=== PATIENT | male | born 1950 | race Caucasian/White ===

== ENCOUNTER 2016-10-06 12:23 | Emergency (ER) | payer BC, MEDICARE ==
--- NOTE | 2016-10-06 13:35 | UC ---
Skin Complaint HPI - HPI Summary HPI Summary: 66 y/o male presents to the urgent care c/o a red rash over his RT arm that is increasing in size s/p bug bite 1 month ago. Pt states he doesn't know what bug was it. But he has applied topical antibiotic w/o any improvement and now is warm to touch and now is spreading to his RT shoulder. Pt denies fever, pain, SOB, chest pain, N/V/D. Pt also states he has HX of Lyme disease in the past which has been managed by his PCP. - History of Current Complaint Chief Complaint: UCSkin Time Seen by Provider: 10/06/16 13:32 Stated Complaint: BUG BITE Hx Obtained From: Patient Onset/Duration: Gradual Onset, Lasting Weeks, Still Present Skin Exposure Onset/Duration: Weeks Ago Timing: Constant Onset Severity: Mild Current Severity: Severe Pain Intensity: 0 Pain Scale Used: 0-10 Numeric Location: Discrete - RT arm spreading to the RT shoulder Character: Swelling, Redness Aggravating: Touch - itches Alleviating: OTC Meds Associated Signs & Symptoms: Negative: Nausea, Vomiting, Numbness, Fever, Chills , Chest Pain, Throat Tightening, Red Streaks, Joint Swelling Related History: Possible Reaction to: Insect - Allergy/Home Medications Allergies/Adverse Reactions: Allergies Allergy/AdvReac Type Severity Reaction Status Date / Time No Known Allergies Allergy Verified 10/06/16 12:28 Review of Systems Constitutional: Negative Skin: Rash - RT arm rash s/p bug bite incresing in size Eyes: Negative ENT: Negative Respiratory: Negative Cardiovascular: Negative Gastrointestinal: Negative Genitourinary: Negative Motor: Negative Neurovascular: Negative Musculoskeletal: Negative Neurological: Negative Psychological: Negative All Other Systems Reviewed And Are Negative: Yes PMH/Surg Hx/FS Hx/Imm Hx Previously Healthy: Yes - Surgical History Surgical History: Yes Surgery Procedure, Year, and Place: Lt KNEE - LIGAMENT REPAIR-[facility]. Lt ANKLE FX REPAIR- NO METAL IMPLANT- [facility]. right shoulder bicep repair 07/2014 - Family History Known Family History: Positive: Hypertension - Social History Occupation: Employed Full-time Lives: With Family Alcohol Use: Daily Alcohol Amount: 1-2 PER DAY//3-4 ON THE WEEKEND DAY Substance Use Type: None Smoking Status (MU): Never Smoked Tobacco Physical Exam Triage Information Reviewed: Yes Appearance: Well-Appearing, No Pain Distress, Well-Nourished Vital Signs: Initial Vital Signs Temp 97.5 F 10/06/16 12:25 Pulse 74 10/06/16 12:25 Resp 16 10/06/16 12:25 BP 166/86 10/06/16 12:25 Pulse Ox 98 10/06/16 12:25 Vital Signs Reviewed: Yes Eye Exam: Normal Eyes: Positive: Conjunctiva Clear - PERRLA, EOMI, fundi grossly normal ENT Exam: Normal ENT: Positive: Normal ENT inspection, Hearing grossly normal, Pharynx normal, TMs normal Dental Exam: Normal Neck exam: Normal Neck: Positive: Supple, Nontender, No Lymphadenopathy Respiratory Exam: Normal Respiratory: Positive: Chest non-tender, Lungs clear, Normal breath sounds Cardiovascular Exam: Normal Cardiovascular: Positive: RRR, No Murmur, Pulses Normal Abdominal Exam: Normal Abdomen Description: Positive: Nontender, No Organomegaly, Soft. Negative: CVA Tenderness (R), CVA Tenderness (L) Bowel Sounds: Positive: Present Musculoskeletal Exam: Normal Musculoskeletal: Positive: Strength Intact, ROM Intact, No Edema Neurological Exam: Normal Psychological Exam: Normal Skin: Positive: rashes - lateral side of RT arm proximal to shloulder with a erythematous patch w/ indistict order, w/ discrete papule of the insect bite asout 12cm x 14cm in size. mildly tender to palpation no red streaks. FROm of the shoulder and arm, positive pulses, sensation intact and capillary refill intact. Course/Dx - Course Course Of Treatment: 66 y/o male presents to the urgent care c/o a red rash over his RT arm that is increasing in size s/p bug bite 1 month ago. Pt states he doesn't know what bug was it. But he has applied topical antibiotic w/o any improvement and now is warm to touch and now is spreading to his RT shoulder. Pt denies fever, pain, SOB, chest pain, N/V/D. Pt also states he has HX of Lyme disease in the past which has been managed by his PCP. HX obtained. Most likely cellulitis s/p insect bite. Rash was demarcated w/ a skin marker. Pt Rx Bactrim to cover for MRSA and advised to take full course of ABX. Advised if rash doubles in size and develops fever to go immediately to the ER for further treatment. PT understood and agreed and left the clinic ambulating, - Differential Diagnoses - Skin Complaint Differential Diagnoses: Allergic Reaction, Cellulitis, Contact Dermatitis, Eczema, Tick Born Illness, Urticaria - Diagnoses Provider Diagnoses: 1-Cellulitis in the RT arm s/p insect bite Discharge - Discharge Plan Condition: Stable Disposition: HOME Prescriptions: Ibuprofen TAB* [Motrin TAB* 800 MG] 800 mg PO Q6H #20 tab Sulfamethox/Trimethoprim DS* [Bactrim DS 800/160 TAB*] 1 tab PO BID #20 tab Patient Education Materials: Cellulitis (ED), Low Sodium Diet (ED) Referrals: David Pressley MD [Primary Care Provider] - 3 Days Additional Instructions: 1-Please take medications as directed. take ibuprofen after meals if you develop fever or pain. If rash doubles in size beyond the demarcated area and fever develops despite the antibiotic go to the ER immediately for further management. Otherwise f/u with your PCP in 3 days if it is resolving. 2- Your BP is elevated today, please decrease salt in your diet, continue monitor your BP, if it continues to be elevated please f/u with your PCP
[2016-10-06 14:14] VITALS: BP 158/84
== END 2016-10-06 14:10 | disposition home or self-care (01) ==
LOC: UCEAST 12:23
DX: L03.113 Cellulitis of right upper limb (principal); Z86.19 Personal history of other infectious and parasitic diseases
CPT/HCPCS: 99212; G0463

== ENCOUNTER 2017-01-16 14:50 | Emergency (ER) | payer BC, MEDICARE ==
[2017-01-16 15:01] VITALS: BP 149/88
--- NOTE | 2017-01-16 15:28 | UC ---
Dizzy HPI HPI Summary: ONSET OF DIZZINESS THIS MORNING AFTER BENDING OVER TO PICK SOMETHING UP. TOOK A NAP AND IT IMPROVED. RESTARTED LATER THIS AFTERNOON AFTER BENDING OVER AGAIN. SX NOT RESOLVING. DIZZINESS IS CONSTANT THOUGH WORSENS WITH POSITION CHANGE. DENIES FEVER, SOB, CP, SWEATS, PALPITATIONS. DOES REPORT A HENDERSON AND NAUSEA. DONATED BLOOD 2 DAYS AGO. - History Of Current Complaint Chief Complaint: UCDizziness Stated Complaint: DIZZY LIGHTHEADED Time Seen by Provider: 01/16/17 14:51 Hx Obtained From: Patient, Family/Car Body Inspector - Onset/Duration: Sudden Onset, Lasting Hours, Still Present Timing: Constant Severity Initially: Moderate Severity Currently: Moderate Pain Intensity: 0 Pain Scale Used: 0-10 Numeric Character: Lightheaded, Dizzy Aggravating Factor(s): Position Change Alleviating Factor(s): Nothing Associated Signs And Symptoms: Positive: Nausea. Negative: Vomiting, Diaphoresis, Chest Pain, SOB, Palpitations, Unsteady Gait, Visual Changes - Allergies/Home Medications Allergies/Adverse Reactions: Allergies Allergy/AdvReac Type Severity Reaction Status Date / Time No Known Allergies Allergy Verified 01/16/17 15:03 Home Medications: Home Medications Acetaminophen [Tylenol] 01/16/17 [History] Dimenhydrinate [Dramamine] 50 mg PO 01/16/17 [History] PMH/Surg Hx/FS Hx/Imm Hx Previously Healthy: Yes - Surgical History Surgical History: Yes Surgery Procedure, Year, and Place: Lt KNEE - LIGAMENT REPAIR-[facility] [place]. Lt ANKLE FX REPAIR- NO METAL IMPLANT- [facility]. right shoulder bicep repair 07/2014 - Family History Known Family History: Positive: Cardiac Disease, Hypertension - Social History Alcohol Use: Daily Alcohol Amount: 1-2 PER DAY//3-4 ON THE WEEKEND DAY Substance Use Type: None Smoking Status (MU): Never Smoked Tobacco Review of Systems Constitutional: Negative Skin: Negative ENT: Negative Respiratory: Negative Cardiovascular: Negative Gastrointestinal: Nausea Neurological: Headache, Other - DIZZY All Other Systems Reviewed And Are Negative: Yes Physical Exam Triage Information Reviewed: Yes Appearance: Well-Appearing, No Pain Distress, Well-Nourished Vital Signs: Initial Vital Signs Temp 97.9 F 01/16/17 14:54 Pulse 80 01/16/17 14:54 Resp 20 01/16/17 14:54 BP 149/88 01/16/17 14:54 Pulse Ox 98 01/16/17 14:54 Vital Signs Reviewed: Yes Eyes: Positive: Conjunctiva Clear ENT: Positive: Hearing grossly normal, Pharynx normal, TMs normal Neck: Positive: Supple, Nontender, No Lymphadenopathy Respiratory Exam: Normal Cardiovascular: Positive: Other: - IRREGULAR Abdomen Description: Positive: Nontender, Soft Musculoskeletal: Positive: No Edema Neurological: Positive: Alert Psychological: Positive: Normal Response To Family, Age Appropriate Behavior Skin: Negative: rashes Diagnostics - EKG Cardiac Rate: NL Cardiac Rhythm: Sinus: Normal Ectopy: PVCs ST Segment: Normal Dizzy Course/Dx - Course Course Of Treatment: TO [facility] [place] ED BY PRIVATE CAR - Differential Dx/Diagnosis Provider Diagnoses: DIZZINESS, ABNORMAL EKG Discharge - Discharge Plan Condition: Stable Disposition: OTHER Discharge Disposition Comment: TO [facility] [place] ED BY PRIVATE CAR Patient Education Materials: Dizziness (ED) Referrals: David Pressley MD [Primary Care Provider] - If Needed Additional Instructions: GO DIRECTLY TO THE ER FROM HERE FOR FURTHER EVALUATION.
== END 2017-01-16 15:38 ==
LOC: UCEAST 14:50
DX: R42 Dizziness and giddiness (principal); R94.31 Abnormal electrocardiogram [ECG] [EKG]; Z72.89 Other problems related to lifestyle
CPT/HCPCS: 93005; 99211; G0463

== ENCOUNTER 2017-01-16 15:36 | Emergency (ER) | payer BC, MEDICARE ==
[2017-01-16] MEDS ORDERED: Aspirin Low Dose CHEW TAB* 81 MG PO ONE (16:51)
[2017-01-16 17:17] LABS: Hematocrit 41 % (42-52); Hemoglobin 13.4 g/dl (14.0-18.0); Mean Corpuscular HGB Conc 33 g/dl (31-36); Mean Corpuscular Hemoglobin 29 pg (27-31); Mean Corpuscular Volume 88 fL (80-94); Mean Platelet Volume 7 um3 (7.4-10.4); Red Cell Distribution Width 13 % (10.5-15); White Blood Count 9.5 10^3/ul (3.5-10.8)
[2017-01-16 17:33] LABS: Albumin 3.8 g/dL (3.2-5.2); BUN/Creatinine Ratio 14.5 (8-20); Calcium 9.1 mg/dL (8.6-10.3); EGFR African American 119.2 (>60); EGFR Non-African American 92.7 (>60); Globulin 2.7 g/dL (2-4); Potassium 4.3 mmol/L (3.5-5.0); Total Bilirubin 0.4 mg/dL (0.2-1.0); Total Protein 6.5 g/dL (6.4-8.9)
[2017-01-16] MEDS ORDERED: Metoprolol Tartrate TAB* 25 MG PO ONE (17:42)
--- NOTE | 2017-01-16 18:26 | RAD ---
INDICATION: Dizziness COMPARISON: Chest x-ray dated November 28, 2014 TECHNIQUE: Single AP portable view of the chest was obtained. FINDINGS: Image quality is compromised due to the relative inferiority of a portable chest x-ray. The heart and mediastinum exhibit normal size and contour. The lungs are grossly clear. There is no evidence of a large pleural effusion. Visualized bones are normal for the patient's age. IMPRESSION: No radiographic evidence for acute cardiopulmonary abnormality on this portable chest x-ray.
--- NOTE | 2017-01-16 18:55 | RAD ---
INDICATION: Vertigo COMPARISON: CT of the brain dated November 28, 2014 TECHNIQUE: Contiguous axial sections of the brain were obtained from the skull base to the vertex without contrast. FINDINGS: The ventricles, cisterns and sulci are within normal limits. The barfield-white matter differentiation is adequately maintained and there is no sulcal effacement. No significant focal abnormality or mass effect is present. There is no evidence for intracranial hemorrhage. No significant focal osseous abnormality is present. The visualized portion of the paranasal sinuses and mastoid air cells appear clear. IMPRESSION: Normal CT of the brain.
[2017-01-16] MEDS ORDERED: Meclizine TAB* 12.5 MG PO ONE (18:57)
--- NOTE | 2017-01-16 19:54 | ED ---
IRosa Alfonso, scribed for Freedom Castro MD on 01/16/17 at 1949 . Progress - Progress Note Progress Note: This patient was signed out from Dr. Fernandes, pending disposition. This patient was seen by the hospitalist (Danny Orta) who reviewed the risk of discharge, including stroke, with the patient. Reevaluation at 1944: Patient has never seen a location director or an ENT. Patient denies palpations and CP at this time. Reviewed a plan for discharge including specialist follow up. He states I am feeling a lot better now. The patients condition is improved and he will sign out AMA with PCP, cardiology, and ENT follow up. Course/Dx - Course Course Of Treatment: Pt refuses admission and requests discharge at this time, saying he feels much better. I informed patient that he is at risk of suffering stroke which could result in permanenet disability and , pt demonstrates understanding and agrees to and understnads discharge instructions. Pt able to make medical decisions, alert and oriented. CN 2-12 intact, no coordination deficits. Pt signed out AMA. - Diagnoses Provider Diagnoses: Vertigo, central The documentation as recorded by the Rosa willis Alfonso accurately reflects the service I personally performed and the decisions made by me, Freedom Castro MD.
--- NOTE | 2017-01-16 19:55 | PN ---
Hospitalist Progress Note Asked by ED provider Dr Fernandes. To eval patient for admission for concerns of posterior cva, Upon discussing this with patient. I explained that Dr fernandes wanted him admitted. The patient states that he did not want to stay for an MRI he felt that this was vertigo. I explained that if this is a stroke he is at risk for disability and at risk for . He was able to verbalize this risked back to me and states that he would come back should he have any worsening symptoms. I then discussed this with Dr birmingham who took over for dr fernandes and explained that the patient did not want to stay. Dr birmingham states that he would do the AMA paper work. I also recommended meclizine and lopressor for the patient bp and meclizine for the vertigo.
[2017-01-16 20:06] VITALS: BP 118/71
== END 2017-01-16 20:08 | disposition left against medical advice (07) ==
LOC: ED 15:36
DX: R42 Dizziness and giddiness (principal)
CPT/HCPCS: 36415; 70450; 71010; 80053; 83605; 84484; 85025; 93005; 99284; A9270-GY

== ENCOUNTER 2017-10-10 09:01 | Emergency (ER) | payer MEDICARE, BC ==
[2017-10-10 09:23] VITALS: BP 137/77
--- NOTE | 2017-10-10 10:23 | UC ---
Elbow Pain - HPI Summary HPI Summary: Patient was working under a vehicle 2 days ago, he developed a discreet pocket of swelling. not painful, non red - History of Current Complaint Chief Complaint: UCUpperExtremity Stated Complaint: SWOLLEN ELBOW Time Seen by Provider: 10/10/17 10:06 Hx Obtained From: Patient Onset/Duration: Days - 2 Pain Intensity: 0 - Allergies/Home Medications Allergies/Adverse Reactions: Allergies Allergy/AdvReac Type Severity Reaction Status Date / Time No Known Allergies Allergy Verified 10/10/17 09:23 PMH/Surg Hx/FS Hx/Imm Hx Previously Healthy: Yes - Surgical History Surgical History: Yes Surgery Procedure, Year, and Place: Lt KNEE - LIGAMENT REPAIR-[facility]. Lt ANKLE FX REPAIR- NO METAL IMPLANT- [facility]. right shoulder bicep repair 07/2014 - Family History Known Family History: Positive: Cardiac Disease, Hypertension - Social History Alcohol Use: Daily Alcohol Amount: 1-2 PER DAY//3-4 ON THE WEEKEND DAY Substance Use Type: None Smoking Status (MU): Never Smoked Tobacco Review of Systems Constitutional: Negative Skin: Negative Eyes: Negative ENT: Negative Respiratory: Negative Cardiovascular: Negative Gastrointestinal: Negative Genitourinary: Negative Motor: Negative Neurovascular: Negative Musculoskeletal: Edema Neurological: Negative Psychological: Negative Is Patient Immunocompromised?: No All Other Systems Reviewed And Are Negative: Yes Physical Exam Triage Information Reviewed: Yes Appearance: Well-Appearing, No Pain Distress, Well-Nourished Vital Signs: Initial Vital Signs Temp 98.0 F 10/10/17 09:18 Pulse 75 10/10/17 09:18 Resp 18 10/10/17 09:18 BP 137/77 10/10/17 09:18 Pulse Ox 99 10/10/17 09:18 Vital Signs Reviewed: Yes ENT Exam: Normal Respiratory Exam: Normal Cardiovascular Exam: Normal Abdominal Exam: Normal Bowel Sounds: Positive: Present Musculoskeletal Exam: Normal Musculoskeletal: Positive: Edema @ - over the left olecranon process Neurological Exam: Normal Psychological Exam: Normal Skin Exam: Normal Elbow Pain Course/Dx - Course Course Of Treatment: hx obtained, exam performed, meds reviewed, zachary applied and educated on treatment - Differential Dx/Diagnosis Differential Diagnosis/HQI/PQRI: Bursitis, Contusion, Fracture (Closed), Infection Provider Diagnoses: left olecranon bursitis Discharge - Sign-Out/Discharge Documenting (check all that apply): Patient Departure - Discharge Plan Condition: Stable Disposition: HOME Patient Education Materials: Elbow Bursitis (ED) Referrals: David Pressley MD [Primary Care Provider] - Additional Instructions: 1.continue to use the compression wrap during the day. 2. Ibuprofen 400 mg -600 mg with 3 times a day for inflammation 3. Follow up if area becomes, hot red or more painful. 4. Try to not lean on the elbow to create mor pressure. - Billing Disposition and Condition Condition: STABLE Disposition: Home
== END 2017-10-10 10:18 | disposition home or self-care (01) ==
LOC: UCEAST 09:01
DX: M70.22 Olecranon bursitis, left elbow (principal); Y93.89 Activity, other specified
CPT/HCPCS: 99211; G0463

== ENCOUNTER 2017-11-01 09:12 | Emergency (ER) | payer MEDICARE, BC ==
[2017-11-01 09:58] VITALS: BP 147/93
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
== END 2017-11-01 10:58 | disposition home or self-care (01) ==
LOC: ED 09:12
DX: L25.9 Unspecified contact dermatitis, unspecified cause (principal)
CPT/HCPCS: 99281

== ENCOUNTER 2019-03-09 13:25 | Emergency (ER) | payer MEDICARE, OTHER ==
--- NOTE | 2019-03-09 13:27 | UC ---
Hand/Wrist HPI - HPI Summary HPI Summary: 68 yo male presents with RIGHT wrist pain. He tells me that on 03/05 he was doing a lot of lifting of countertops as they are remodeling and later that night had diffuse right wrist pain worse at the dorsal aspect and with movement. Had bruising the next day with mild swelling. Since that time the bruising and swelling have improved. Pain has minimally improved. Last night he used a wrist brace with little relief. He took ibuprofen once, but states it didn't do much. Denies numbness or tingling. Denies specific injury. He is right handed. - History Of Current Complaint Stated Complaint: HAND INJURY Time Seen by Provider: 03/09/19 13:26 Hx Obtained From: Patient Onset/Duration: Sudden Onset Severity Initially: Moderate Severity Currently: Moderate Pain Intensity: 5 Pain Scale Used: 0-10 Numeric - Allergies/Home Medications Allergies/Adverse Reactions: Allergies Allergy/AdvReac Type Severity Reaction Status Date / Time No Known Allergies Allergy Verified 03/09/19 13:38 PMH/Surg Hx/FS Hx/Imm Hx - Additional Past Medical History Additional PMH: None - Surgical History Surgical History: Yes Surgery Procedure, Year, and Place: Lt KNEE - LIGAMENT REPAIR-[facility] – [place]. Lt ANKLE FX REPAIR- NO METAL IMPLANT- [facility]. right shoulder bicep repair 07/2014 - Family History Known Family History: Positive: Cardiac Disease, Hypertension - Social History Lives: With Family Alcohol Use: Daily Alcohol Amount: 1-2 PER DAY//3-4 ON THE WEEKEND DAY Substance Use Type: None Smoking Status (MU): Never Smoked Tobacco Review of Systems All Other Systems Reviewed And Are Negative: No Constitutional: Positive: Negative Skin: Positive: Negative Respiratory: Positive: Negative Cardiovascular: Positive: Negative Musculoskeletal: Positive: Other: - right wrist pain Neurological: Positive: Negative Psychological: Positive: Negative Physical Exam - Summary Physical Exam Summary: GENERAL: NAD. WDWN. No pain distress. SKIN: No rashes, sores, lesions, or open wounds. CHEST: No accessory muscle use. Breathing comfortably and in no distress. CV: Pulses intact radial and ulnar. Cap refill <2seconds MSK: RIGHT WRIST: Mild TTP about dorsal aspect and ulnar tendon. Pain with flexion of wrist and radial deviation. 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 No edema or obvious bony deformities. No snuffbox tenderness. NEURO: Alert. Sensations intact hand and all fingers. PSYCH: Age appropriate behavior. Triage Information Reviewed: Yes Vital Signs: Vital Signs: Temp Pulse Resp BP Pulse Ox 98.3 F 73 18 157/83 96 03/09/19 13:39 03/09/19 13:39 03/09/19 13:39 03/09/19 13:39 03/09/19 13:39 Vital Signs Reviewed: Yes Diagnostics - Radiology Wrist XR Radiology Interpretation Completed By: Radiologist Summary of Radiographic Findings: IMPRESSION: NO FRACTURE OF THE WRIST IS NOTED. Hand/Wrist Course/Dx - Course Course Of Treatment: XR as above. Suspect tendinitis. He admits that he has been helping his brother build a garage for about a month in addition to this countertop remodeling. Recommended RICE, wrist brace, and will rx for naproxen. F/u with Orthopedics if symptoms do not improve within 1 week. - Differential Dx/Diagnosis Provider Diagnosis: Right wrist tendinitis Discharge ED - Sign-Out/Discharge Documenting (check all that apply): Patient Departure All imaging exams completed and their final reports reviewed: Yes - Discharge Plan Condition: Stable Disposition: HOME Prescriptions: Naproxen [Naproxen 500 mg tab] 500 mg PO BID PRN #20 tablet PRN Reason: Pain - Mild Patient Education Materials: Tendinitis (ED) Referrals: David Pressley MD [Primary Care Provider] - Nash Toney MD [Medical Doctor] - If Needed Additional Instructions: If you develop a fever, shortness of breath, chest pain, new or worsening symptoms - please call your PCP or go to the ED immediately. Your blood pressure was high at todays visit. Please see your primary provider within 4 weeks for recheck and re-evaluation. The X-ray of your wrist was normal today. I suspect you have tendinitis due to overuse. Please use the wrist brace as needed for comfort. Ice your wrist and take naproxen as prescribed to decrease pain and inflammation. If your symptoms do not improve within 1 week - please call Orthopedics at the number below to schedule an appointment for a recheck - Billing Disposition and Condition Condition: STABLE Disposition: Home
--- OUTSIDE RECORDS SUMMARY | 2019-03-09 13:31 | XMS REPORT | Continuity of Care Document ---
:1950 External Reference #:[id number] Author Name Mattie Mendoza O.D. (transmitted by agent of provider Cecille Fernandez) Address [address] [place] [address] Care Team Providers Name Role Phone David Pressley M.D. 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 Onset: 07/27/2018 Nuclear senile cataract Mattie Mendoza O.D. Onset: 07/27/2018 Myopia Mattie Mendoza O.D. Onset: 07/27/2018 Presbyopia Mattie Mendoza O.D. Onset: 07/27/2018 Regular astigmatism Mattie Mendoza O.D. Onset: 07/27/2018 Social History Type Date Description Comments Sex Unknown ETOH Use Consumes 2 beers per day Tobacco Use Start: Unknown Patient has never smoked Recreational Drug Use Denies Drug Use Smoking Status Reviewed: 01/18/19 Patient has never smoked Allergies, Adverse Reactions, Alerts Description No Known Drug Allergies Medications Active Medications SIG Qnty Indications Ordering Provider Date Cleo 128 1 drop both eyes Mattie Mendoza, 2% Solution 4 times daily O.D. Cleo 128 both eyes every Mattie Mendoza, 5% Ointment night O.D. History Medications No Active Medications Unknown 07/27/2018 - 01/18/2019 Immunizations Description No Information Available Vital Signs Description No Information Available Results Description No Information Available Procedures Date Code Description Status 07/27/2018 07541 Determination Of Refractive State Completed 07/27/2018 84406 New Patient Comprehensive Exam Completed Medical Devices Description No Information Available Encounters Description No Information Available Assessments Date Code Description Provider 01/18/2019 H18.51 Endothelial corneal dystrophy Mattie Mendoza O.D. 01/18/2019 H52.13 Myopia, bilateral Mattie Mendoza O.D. 01/18/2019 H52.4 Presbyopia Mattie Mendoza O.D. 01/18/2019 H52.223 Regular astigmatism, bilateral Mattie Mendoza O.D. 11/29/2018 H18.51 Endothelial corneal dystrophy Mattie Mendoza O.D. 07/27/2018 H18.51 Endothelial corneal dystrophy Mattie Mendoza O.D. 07/27/2018 H25.13 Age-related nuclear cataract, bilateral Mattie Mendoza O.D. 07/27/2018 H52.13 Myopia, bilateral Mattie Mendoza O.D. 07/27/2018 H52.4 Presbyopia Mattie Mendoza O.D. 07/27/2018 H52.223 Regular astigmatism, bilateral Mattie Mendoza O.D. Plan of Treatment Future Appointment(s):01/19/2020 11:30 am - Mattie Mendoza O.D. at [facility], pc103/20/2018 - Mattie Mendoza O.D.H18.51 Endothelial corneal dystrophyComments:You have Fuch's corneal dystrophy. This may cause reduced vision. If you are noticing blurred vision, especially in the morning, use Cleo 128 ointment in affected eyes before bedtime. USE THE CLEO DROPS 4 TIMES A DAY IN AT LEAST THE RIGHT EYE, YOU CAN USE IN BOTH EYESFollow up: [id number] Myopia, bilateralComments:You have Myopia, or near sightedness. I have given you a prescription for glasses.H52.4 PresbyopiaComments:You have presbyopia. This is when the lens in your eye loses the ability to change focus, and happens as we age. A pair of reading glasses will help you see up close. I RECOMMEND SINGLE VISION READINGGLASSES TO HELP WITH CLOSE WORKH52.223 Regular astigmatism, bilateralComments:Smoking can increase the risk of developing or worsening any eye related disease, as well as affect your overall health. If you are a smoker, we strongly recommend that you quit.If you are not a smoker, we strongly recommend that you do not start. Astigmatism is a common vision condition that happens when a person's cornea is not symmetrical. Dr. Mendoza has given you a prescription to correct for this. Functional Status Description No Information Available Mental Status Description No Information Available Referrals Description No Information Available
[2019-03-09 13:44] VITALS: BP 157/83
== END 2019-03-09 14:20 | disposition home or self-care (01) ==
LOC: UCEAST 13:25
DX: M77.9 Enthesopathy, unspecified (principal); M25.531 Pain in right wrist
CPT/HCPCS: 99213; G0463